=== PATIENT | male | born 1980 | race Caucasian/White ===

== ENCOUNTER 2022-11-08 12:22 | Emergency (ER) | payer SELFPAY ==
[~2022-11-08] VITALS: Ht 177.8 cm; Wt 106.3 kg
[2022-11-08 14:56] VITALS: BP 140/92; PULSE 124; RESP 18; TEMP 97.8; O2SAT 97
[2022-11-08] MEDS ORDERED: LIDOCAINE 1% HCL (LOCAL ANESTH.) INJ 20ML MDV ID ONE (16:15)
[2022-11-08] MEDS ORDERED: CEPH500C PO (16:50)
== END 2022-11-08 16:50 | disposition home or self-care (01) ==
LOC: ER 12:22
DX: L02.414 Cutaneous abscess of left upper limb (principal)
CPT/HCPCS: 10060; 99283; J2001

== ENCOUNTER 2022-11-10 09:36 | Emergency (ER) | payer BC, MEDICAID ==
[~2022-11-10] VITALS: Ht 177.8 cm; Wt 106.6 kg
[~2022-11-10 09:36] MED LIST: CEPH500C PO
[2022-11-10 10:26] VITALS: BP 137/85; PULSE 107; RESP 18; TEMP 97.9; O2SAT 96
== END 2022-11-10 10:30 | disposition home or self-care (01) ==
LOC: ER 09:36
DX: Z48.01 Encounter for change or removal of surgical wound dressing (principal); L02.212 Cutaneous abscess of back [any part, except buttock and flank]

== ENCOUNTER 2022-11-23 09:10 | Emergency (ER) | payer MEDICAID ==
[~2022-11-23] VITALS: Ht 177.8 cm; Wt 108.3 kg
[2022-11-23 09:29] VITALS: BP 129/46; PULSE 92; RESP 16
[2022-11-23 10:45] VITALS: O2SAT 98
== END 2022-11-23 10:46 | disposition home or self-care (01) ==
LOC: ER 09:10
DX: L02.212 Cutaneous abscess of back [any part, except buttock and flank] (principal); Z79.899 Other long term (current) drug therapy